=== PATIENT | male | born 1935 | race Caucasian/White ===

== ENCOUNTER 2016-10-31 15:55 | Emergency (ER) | payer MEDICARE, OTHER ==
[~2016-10-31] VITALS: Ht 170.2 cm; Wt 100.9 kg
[~2016-10-31 15:55] MED LIST: ALBU0.63 INHALATION; ASPI81TA3 PO; CHOL10008 PO; DIGO125T73 PO; DILT-17 PO; FLUO10CA20 PO; GLIP2.5T2 PO; HYDR25TA4 PO; KTC2C15 TP; LOVA20TA PO; METO-274 PO; PRAM0.5T3 PO
--- NOTE | 2016-10-31 16:00 | ED.REPORT ---
HPI-Chest Pain 40 and Over Date of Service Oct 31, 2016 ED Provider: Dr. Joselo Cantu MD A 81 year old male with a history of aortic aneurysm, hypertension, hyperlipidemia, diabetes mellitus and anxiety presents to the ED via EMS following a sudden onset episode of chest pain that began just prior to arrival. The episode lasted approx. 4 minutes and the patient was sitting down during symptom onset. He endorses radiating back pain. EMS state that the patient was dyspneic en route. Patient is asymptomatic upon arrival to the ED. Recent pharmacological stress test on 10/13 revealed "abnormal myocardial perfusion images with a moderate sized fixed perfusion defect" and a normal EF. Nursing Notes Stated Complaint: CHEST PAIN Nursing Notes Reviewed: Yes Allergies: Coded Allergies: codeine (Verified Allergy, Severe, SEVERE RESTLESS/HIVES, 06/15/15) Scheduled Aspirin Chew (Aspirin Chew) 81 Mg Chew 81 MG PO DAILY Cholecalciferol (Vitamin D3) (Vitamin D3) 1,000 Unit Tab.chew 1,000 UNIT PO HS Digoxin (Digoxin) 125 Mcg Tablet 125 MCG PO DAILY Diltiazem ER (Diltiazem ER) 120 Mg Cap.er.24h 120 MG PO DAILY Fluoxetine (Fluoxetine) 10 Mg Capsule 20 MG PO QAM Glipizide ER (Glipizide ER) 2.5 Mg Tab.er.24 2.5 MG PO MORNING Hydrochlorothiazide (Hydrochlorothiazide) 25 Mg Tablet 25 MG PO DAILY Ketoconazole (Ketoconazole) 15 Gm Cream..g. 15 GM TP BID Apply to affected area twice daily Lovastatin (Lovastatin) 20 Mg Tablet 20 MG PO HS Metoprolol Succinate ER (Metoprolol Succinate ER) 100 Mg Tab.er.24h 125 MG PO DAILY Pramipexole Dihydrochloride (Mirapex) 0.5 Mg Tablet 0.5 MG PO HS Take 2-3 hours before bedtime Scheduled PRN Albuterol Neb Soln (Albuterol Neb Soln) 0.63 Mg/3 Ml Vial.neb 0.63 MG INHALATION Q4H PRN PRN For Wheezing General Time Seen by MD: 16:00 Chief Complaint Chest pain Hx Obtained From: Patient Arrived By: Ambulance Sudden in Onset?: Yes Onset Occurred: Just prior to arrival Symptom Duration: 1 - 15 minutes (4 min) Location: : Back: Chest left: Chest right Quality: Painful Radiation: : Does not radiate Migration/Movement: Reports: Chest to back Severity: Current: No pain currently Severity: Maximum: Moderate Pertinent Negative: Pt denies other symptoms Recent Healthcare: No recent hospitalization, Recent doctor visit Risk Factors )( CAD Risk Stratification Hyperlipidemia Hypertension Risk factors reviewed )( TAD Risk Stratification Hypertension Risk factors reviewed )( PE Risk Stratification Risk factors reviewed Past Medical History Past Medical History Notes: PCP: Dr. 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 Physical Exam Initial Vital Signs Vital Signs (First) Date Time Temp Pulse Resp B/P Pulse Ox O2 Delivery O2 Flow Rate FiO2 10/31/16 16:05 36.3 60 24 155/56 98 Room Air Initial VS: Reviewed Head / Eyes: Atraumatic, Normocephalic, PERRL Neck: Supple, Non-tender, Full range of motion Skin: Warm, Dry, No cyanosis Neurologic: Alert, Oriented, Nonfocal Psychiatric: Mood/affect normal, Behavior normal, Normal thought content General/Constitutional: Awake, Alert Respiratory / Chest: Atraumatic, Breath sounds = bilat Resp Distress / Stridor: Positive: Resp distress mild (Dyspneic) Cardiovascular: Heart rate NL, Regular rhythm CARDIO: Distant heart sounds Abdomen: Atraumatic, Soft, Non-tender Lower Extremity / Pelvis / MS: Atraumatic, Inspection NL, No swelling, Non- tender, Neurologic intact, Vascular intact LOWER EXTREMITITES: Good DP and PT pulses Upper Extremity / MS: Atraumatic, Inspection NL, No swelling, Non-tender, Neurologic intact, Vascular intact Interpretation & Diagnostics Lab Results Interpretation Result Diagram: 10/31/16 1615 10/31/16 1615 Test 10/31/16 16:15 10/31/16 20:00 White Blood Count 8.5th/mm3 (3.8-10.1) Red Blood Count 4.25mil/mm3 (4.40-5.80) Hemoglobin 13.2g/dL (13.8-17.2) Hematocrit 39.4% (41.0-50.0) Mean Corpuscular Volume 92.7fL (81-100) Mean Corpuscular Hemoglobin 31.1pg (27.0-35.0) Mean Corpuscular Hemoglobin Concent 33.5% (32.0-37.0) Red Cell Distribution Width 14.4% (12.3-15.4) Platelet Count 254bil/L (150-400) Neutrophils (%) (Auto) 47.6% (40-74) Lymphocytes (%) (Auto) 37.0% (14-46) Monocytes (%) (Auto) 9.2% (4-12) Eosinophils (%) (Auto) 5.1% (0-5) Basophils (%) (Auto) 0.5% (0-3) Prothrombin Time 10.1sec (8.1-12.5) Prothromb Time International Ratio 0.95ratio D-Dimer 4.53mg/L FEU (<0.50) Sodium Level 140mEq/L (134-144) Potassium Level 3.7mEq/L (3.5-5.2) Chloride Level 104mEq/L (97-108) Carbon Dioxide Level 22mmol/L (18-29) Blood Urea Nitrogen 25mg/dL (8-27) Creatinine 1.05mg/dL (0.76-1.27) Estimat Glomerular Filtration Rate 72mL/min (>59) Glucose Level 94mg/dL (60-99) Calcium Level 9.4mg/dL (8.5-10.1) Magnesium Level 1.8mg/dL (1.6-2.6) Total Bilirubin 0.2mg/dL (0.0-1.2) Aspartate Amino Transf (AST/SGOT) 12U/L (0-50) Alanine Aminotransferase (ALT/SGPT) 8U/L (0-44) Alkaline Phosphatase 93U/L (25-160) Pro-B-Type Natriuretic Peptide 245.8pg/mL (0-486) Total Protein 7.2g/dL (6.4-8.4) Albumin 3.6g/dL (3.4-5.0) Hold Balderas Top Tube Received (Received) Troponin T < 0.010ug/L (0.0-0.011) Pulse Oximetry Interpretation Pulse Oximetry: Pulse Ox normal (100%), On room air ECG Interpretation ECG Interpretation: Sinus Rhythm Rate [address] segment changes Time: 16:07 Interpreted by: ED physician Rhythm Strip Interpretation : Time: 16:17 Rhythm Strip Interpretation: Interpreted by me, Rate (67), Normal sinus rhythm X-Ray Chest Interpretation Chest Xray Interpretation: IMPRESSION: Prominent heart size. No focal acute pulmonary opacities. Dictated by: Margarito Bedoya M.D. on 10/31/2016 at 16:26 Interpretation / Wet Read by: Interpret - Radiologist CT Chest Interpretation IMPRESSION: 1. No evidence for central pulmonary embolism. Prominent main pulmonary artery as before, consistent with background pulmonary arterial hypertension. 2. Pulmonary, left hilar, and splenic remote granulomatous disease. 3. Large fat-containing retrocardiac hiatal hernia again noted. 4. Mild nonacute T3 and T9 vertebral body superior endplate compression fractures as before. 5. Interval increased degree of severe asymmetric right supraspinatus and infraspinatus muscle atrophy, consistent with chronic full-thickness tendon tears. 6. Several left renal cortical simple cysts, as well as scattered tiny hepatic cysts. Dictated by: Mikey Dominique M.D. on 10/31/2016 at 18:11 Study type: CT pulm angiogram Interpretation / Wet Read by: Interpret - Radiologist Re-Eval/Medical Decision Time of Eval: 19:38 Patient Status: Condition improved Re-Evaluation/Progress Note: Patient condition is re-evaluated. symptoms have improved following treatment. Time of Eval: 21:30 Re-Evaluation/Progress Note: He is informed of his current results and the intended treatment plan. Patient is offerred admission but declines. Patient is given strict return precautions. He understands and agree with the plan. Counseled Regarding: Diagnosis, Lab results, Need for follow-up, When/why to return to ED Discharge & Departure Primary Impression: Chest pain Chest pain type: unspecified Qualified Code: R07.9 - Chest pain, unspecified Disposition: Home Discharge Condition All VS Reviewed: Yes Condition: Critical Patient Instructions: Chest Pain (ED) Additional Instructions: Thank you for trusting us with your care this evening. Your emergency department evaluation today including examination, lab work, EKG , chest X-ray and CT angiogram are reassuring that there is no emergent cause for concern at this time. There is no evidence of pulmonary embolism or aortic dissection at this time. However, a clear cause of your pain was not identified so I highly recommend that you schedule a follow-up appointment with your primary care physician tomorrow for a recheck. Take 1-2 Tylenol or ibuprofen every 6-8 hours as needed for pain. Please return to the emergency department for any new or worsening conditions including any fevers, chills, nausea, vomiting, intense, crushing chest pain, shortness of breath, excessive sweating, lightheadedness, weakness or any other concerning symptoms. Referrals: Veronica Jacome MD (PCP) Scribe Attestation Portions of this note were transcribed by Renae Sánchez. I, Dr. Cantu personally performed the history, physical exam and medical decision-making; I reviewed and confirmed the accuracy of the information in the transcribed note. copies to: Veronica Jacome MD, Todd P DO Oct 31, 2016 16:00 RENAE SÁNCHEZ Oct 31, 2016 16:04 RENAE SÁNCHEZ Oct 31, 2016 16:04
[2016-10-31 16:05] VITALS: BP 155/56; PULSE 60; RESP 24; O2SAT 98
--- NOTE | 2016-10-31 16:28 | DRSVH ---
PROCEDURE: X-RAY CHEST ONE VIEW, PORTABLE ([id number]) INDICATIONS: chest pain TECHNIQUE: One view of the chest was acquired. COMPARISON: [facility], [place], XR CHEST 1VW (PORTABLE), 06/15/2015, 16:09. FINDINGS: Surgical changes and devices: None. Lungs and pleura: No pleural effusions or pneumothorax. Lungs are clear. Mediastinum: Mediastinal contours appear normal. Heart size is prominent. Bones and chest wall: No suspicious bony lesions. Overlying soft tissues appear unremarkable. Calc ification projects over the right rotator cuff. Bilateral shoulder degenerative change. IMPRESSION: Prominent heart size. No focal acute pulmonary opacities. Dictated by: Margarito Bedoya M.D. on 10/31/2016 at 16:26 Approved by: Margarito Bedoya M.D. on 10/31/2016 at 16:27
[2016-10-31 16:43] LABS: BASOPHILS % (AUTO) 0.5 % (0-3); EOSINOPHILS % (AUTO) 5.1 % (0-5); MONOCYTES % (AUTO) 9.2 % (4-12); Mean Corpuscular Hemoglobin 31.1 pg (27.0-35.0); Mean Corpuscular Volume 92.7 fL (81-100); NEUTROPHILS % (AUTO) 47.6 % (40-74); Platelet Count 254 bil/L (150-400)
[2016-10-31 16:55] LABS: INR 0.95 ratio
[2016-10-31 17:03] LABS: D-Dimer 4.53 mg/L FEU (<0.50)
[2016-10-31 17:04] LABS: TROPONIN T < 0.010 ug/L (0.0-0.011)
[2016-10-31 17:11] LABS: Magnesium 1.8 mg/dL (1.6-2.6)
--- NOTE | 2016-10-31 18:22 | DRSVH ---
PROCEDURE: CT ANGIO CHEST PULMONARY EMBOLISM ([id number]) INDICATIONS: 81 year-old male with chest pain and shortness of breath, with elevated d-dimer level. TECHNIQUE: After the administration of intravenous contrast, 2 mm thick sections acquired from the pulmonary api john to the posterior costophrenic angles. 3-dimensional maximum intensity projection (MIP) coronal a nd sagittal reformats were then acquired through the thorax. For radiation dose reduction, the follo wing was used: automated exposure control, adjustment of mA and/or kV according to patient size. COMPARISON: [facility], CT, CT ANGIO CHEST PE, 05/08/2015, 0:40. FINDINGS: Image quality: Excellent. Pulmonary arteries: Pulmonary arteries demonstrate no intraluminal filling defects to suggest centra l pulmonary embolism. Main pulmonary artery is prominent in caliber at 3.2 cm diameter. Lungs and pleura: No acute airspace opacities. Calcified granuloma is present within the superior se gment of the left lower lobe. Lung volumes are decreased, with patchy dependent atelectasis. No pleur al effusions or pneumothorax. Central and peripheral airways are patent. Mediastinum: Mild cardiomegaly is unchanged, without pericardial effusion. No mediastinal or hilar a denopathy. Several calcified left hilar granulomas are again noted. Thoracic aorta is normal in renata aman and enhancement. Esophagus is normal in caliber, with a large fat-containing hiatal hernia again noted. Bones and chest wall: No suspicious bony lesions. Mild nonacute T3 and T9 vertebral body superior en dplate compression fractures are unchanged. Thyroid gland is normal in size. No axillary or supracla vicular adenopathy. There is severe asymmetric right supraspinatus and infraspinatus muscle atrophy. Abdomen: Several left renal cortical simple cysts are again noted, measuring up to 2.7 cm. Scattered tiny hepatic cysts are also present. There is punctate calcified splenic granuloma. IMPRESSION: 1. No evidence for central pulmonary embolism. Prominent main pulmonary artery as before, consistent with background pulmonary arterial hypertension. 2. Pulmonary, left hilar, and splenic remote granulomatous disease. 3. Large fat-containing retrocardiac hiatal hernia again noted. 4. Mild nonacute T3 and T9 vertebral body superior endplate compression fractures as before. 5. Interval increased degree of severe asymmetric right supraspinatus and infraspinatus muscle atroph y, consistent with chronic full-thickness tendon tears. 6. Several left renal cortical simple cysts, as well as scattered tiny hepatic cysts. Dictated by: Mikey Dominique M.D. on 10/31/2016 at 18:11 Approved by: Mikey Dominique M.D. on 10/31/2016 at 18:20
[2016-10-31 18:44] VITALS: BP 132/66; PULSE 72; RESP 22; O2SAT 95
[2016-10-31 21:26] VITALS: BP 117/74; PULSE 73; RESP 18; O2SAT 99
== END 2016-10-31 21:35 | disposition home or self-care (01) ==
LOC: SED 15:55
DX: R07.9 Chest pain, unspecified (principal); I11.0 Hypertensive heart disease with heart failure; E11.59 Type 2 diabetes mellitus with other circulatory complications; I45.10 Unspecified right bundle-branch block; E78.5 Hyperlipidemia, unspecified; F41.9 Anxiety disorder, unspecified; Z79.82 Long term (current) use of aspirin; Z87.891 Personal history of nicotine dependence; Z88.5 Allergy status to narcotic agent
CPT/HCPCS: 36415; 71010; 71275; 80053; 83735; 83880; 84484; 85025; 85378; 85610; 93005; 99285; Q9967